=== PATIENT | male | born 1970 ===

== ENCOUNTER 2018-02-09 12:19 | Emergency (ER) | payer OTHER ==
[~2018-02-09] VITALS: Ht 188 cm; Wt 113.4 kg
[2018-02-09] MEDS ORDERED: ATORVASTATIN CA10 MG (12:26)
[2018-02-09] MEDS ORDERED: LISINOPRIL30 MG (12:26)
[2018-02-09] MEDS ORDERED: SYNTHROID300 MCG (12:26)
[2018-02-09] MEDS ORDERED: NEXIUM5 MG (12:26)
== END 2018-02-09 14:39 | disposition home or self-care (01) ==
LOC: ER 12:19
DX: S92.512A Displaced fracture of proximal phalanx of left lesser toe(s), initial encounter for closed fracture (principal); T24.201S Burn of second degree of unspecified site of right lower limb, except ankle and foot, sequela; S93.492S Sprain of other ligament of left ankle, sequela; S90.122S Contusion of left lesser toe(s) without damage to nail, sequela; M25.572 Pain in left ankle and joints of left foot; T79.8XXS Other early complications of trauma, sequela; X19.XXXS Contact with other heat and hot substances, sequela; X50.0XXS Overexertion from strenuous movement or load, sequela